=== PATIENT | female | born 1970 | race Caucasian/White ===

== ENCOUNTER → 2017-02-18 | Outpatient (CLI) | payer BC ==
--- NOTE | 2017-02-22 06:59 | MM ---
Reason for exam: screening (asymptomatic). Last mammogram was performed 1 year and 2 months ago. History: Patient is nulliparous. Took hormonal contraceptives for 2 years. Physical Findings: A clinical breast exam by your physician is recommended on an annual basis and results should be correlated with mammographic findings. MG Screening Mammo w CAD Bilateral CC and MLO view(s) were taken. Prior study comparison: January 01, 2016, bilateral MG 3d screening mammo w/cad. December 27, 2014, bilateral MG screening mammo w CAD. The breast tissue is heterogeneously dense. This may lower the sensitivity of mammography. No significant changes when compared with prior studies. ASSESSMENT: Negative, BI-RAD 1 RECOMMENDATION: Routine screening mammogram of both breasts in 1 year.
== END | disposition home or self-care (01) ==
LOC: RADMAMWWP 07:45
PROVIDERS: ATTEND Family Medicine
DX: Z12.31 Encounter for screening mammogram for malignant neoplasm of breast (principal)
CPT/HCPCS: 77067

== ENCOUNTER → 2017-04-08 | Outpatient (CLI) | payer BC ==
--- NOTE | 2017-04-09 10:57 | US ---
EXAMINATION TYPE: US transvaginal DATE OF EXAM: 04/08/2017 COMPARISON: NONE CLINICAL HISTORY: R10.9 Abd Pain,R10.2 Midline Pelvic/Peritoneal Pain; noted one week prior to menstr ual cycle and during menses;G0 TECHNIQUE: Transvaginal (TV) per order. Date of LMP: 03/18/2017 EXAM MEASUREMENTS: Uterus: 9.5 x 5.0 x 3.9 cm Endometrial Stripe: 0.9 cm Right Ovary: 3.1 x 1.7 x 2.0 cm Left Ovary: 2.0 x 1.6 x 1.6 cm 1. Uterus: Anteverted; multiple small nabothian cysts in lower uterus and in cervix with largest in cervix = 0.8 x 0.7 x 0.6cm 2. Endometrium: thickness appears wnl for approximate day 22 LMP 3. Right Ovary: small follicle is seen 4. Left Ovary: small follicle is seen = 0.8 x 0.7 x 0.7cm *color flow is seen in bilateral ovary 5. Bilateral Adnexa: wnl 6. Posterior cul-de-sac: wnl IMPRESSION: 1. No acute pelvic abnormality by ultrasound.
== END | disposition home or self-care (01) ==
LOC: RADUSWWP 15:00
PROVIDERS: ATTEND Family Medicine
DX: R10.2 Pelvic and perineal pain (principal); R10.9 Unspecified abdominal pain
CPT/HCPCS: 76830

== ENCOUNTER → 2018-03-04 | Outpatient (CLI) | payer BC ==
--- NOTE | 2018-03-07 14:58 | MM ---
Reason for exam: screening (asymptomatic). Last mammogram was performed 1 year ago. History: Patient is nulliparous. Took hormonal contraceptives for 2 years. Physical Findings: A clinical breast exam by your physician is recommended on an annual basis and results should be correlated with mammographic findings. MG Screening Mammo w CAD Bilateral CC and MLO view(s) were taken. Prior study comparison: February 18, 2017, bilateral MG screening mammo w CAD. January 01, 2016, bilateral MG 3d screening mammo w/cad. The breast tissue is heterogeneously dense. This may lower the sensitivity of mammography. There is no discrete abnormality. No significant changes when compared with prior studies. ASSESSMENT: Negative, BI-RAD 1 RECOMMENDATION: Routine screening mammogram of both breasts in 1 year.
== END | disposition home or self-care (01) ==
LOC: RADMAMWWP 08:45
PROVIDERS: ATTEND Family Medicine
DX: Z12.31 Encounter for screening mammogram for malignant neoplasm of breast (principal)
CPT/HCPCS: 77067

== ENCOUNTER → 2019-03-17 | Outpatient (CLI) | payer BC ==
--- NOTE | 2019-03-21 10:15 | MM ---
Reason for exam: screening (asymptomatic). Last mammogram was performed 1 year ago. History: Patient is nulliparous. Took hormonal contraceptives for 2 years. Physical Findings: A clinical breast exam by your physician is recommended on an annual basis and results should be correlated with mammographic findings. MG Screening Mammo w CAD Bilateral CC and MLO view(s) were taken. Prior study comparison: March 04, 2018, bilateral MG screening mammo w CAD. February 18, 2017, bilateral MG screening mammo w CAD. The breast tissue is heterogeneously dense. This may lower the sensitivity of mammography. Finding: There are stable fine, grouped/clustered calcifications in the upper quadrant, posterior position of the left breast MLO view. No significant changes in finding since March 04, 2018 and February 18, 2017. ASSESSMENT: Benign, BI-RAD 2 RECOMMENDATION: Routine screening mammogram of both breasts in 1 year.
== END | disposition home or self-care (01) ==
LOC: RADMAMWWP 15:02
PROVIDERS: ATTEND Family Medicine
DX: Z12.31 Encounter for screening mammogram for malignant neoplasm of breast (principal)
CPT/HCPCS: 77067

== ENCOUNTER → 2020-05-08 | Outpatient (CLI) | payer BC ==
--- NOTE | 2020-05-10 09:56 | MM ---
Reason for exam: screening (asymptomatic). Last mammogram was performed 1 year and 2 months ago. History: Patient is nulliparous. Took hormonal contraceptives for 2 years. Physical Findings: A clinical breast exam by your physician is recommended on an annual basis and results should be correlated with mammographic findings. MG Screening Mammo w CAD Bilateral CC and MLO view(s) were taken. Prior study comparison: March 17, 2019, bilateral MG screening mammo w CAD. March 04, 2018, bilateral MG screening mammo w CAD. The breast tissue is heterogeneously dense. This may lower the sensitivity of mammography. There is no discrete abnormality. No significant changes when compared with prior studies. ASSESSMENT: Negative, BI-RAD 1 RECOMMENDATION: Routine screening mammogram of both breasts in 1 year.
== END | disposition home or self-care (01) ==
LOC: RADMAMWWP 07:09
PROVIDERS: ATTEND Family Medicine
DX: Z12.31 Encounter for screening mammogram for malignant neoplasm of breast (principal)
CPT/HCPCS: 77067

== ENCOUNTER 2020-11-04 20:28 | Observation (INO) | payer BC ==
[2020-11-04 20:57] LABS: Basophils % (A) 0 %; Eosinophils # (A) 0.1 k/uL (0-0.7); Eosinophils % (A) 1 %; HCT 41.7 % (34.0-46.0); HGB 13.6 gm/dL (11.4-16.0); Lymphocytes # (A) 2.3 k/uL (1.0-4.8); Lymphocytes % (A) 17 %; MCH 29.8 pg (25.0-35.0); MCHC 32.6 g/dL (31.0-37.0); MCV 91.5 fL (80.0-100.0); Mean Platelet Volume 7.8; Monocytes # (A) 0.6 k/uL (0-1.0); Monocytes % (A) 4 %; Neutrophils # (A) 10.8 k/uL (1.3-7.7); Neutrophils % (A) 77 %; Platelet Count 214 k/uL (150-450); RBC 4.56 m/uL (3.80-5.40); RDW 12.9 % (11.5-15.5)
[2020-11-04 21:06] LABS: ALT 15 U/L (4-34); AST 20 U/L (14-36); African American GFR (CKD) >90 (>60 ml/min/1.73 sqM); Albumin 4.5 g/dL (3.5-5.0); Alkaline Phosphatase 80 U/L (38-126); Anion Gap 10 mmol/L; Blood Urea Nitrogen 19 mg/dL (7-17); Calcium 9.9 mg/dL (8.4-10.2); Carbon Dioxide 23 mmol/L (22-30); Chloride 105 mmol/L (98-107); Glucose 104 mg/dL (74-99); Non-African American GFR(CKD) >90 (>60 ml/min/1.73 sqM); Potassium 4.1 mmol/L (3.5-5.1); Sodium 138 mmol/L (137-145); Total Bilirubin 0.3 mg/dL (0.2-1.3); Total Protein 7.3 g/dL (6.3-8.2)
[2020-11-04 21:13] LABS: INR 0.9 (<1.2); Partial Thromboplastin Time 22.9 sec (22.0-30.0); Prothrombin Time 9.6 sec (9.0-12.0)
[2020-11-04] MEDS ORDERED: ASPIRIN 81 MG PO STA (21:22)
--- NOTE | 2020-11-04 21:25 | ED ---
General Adult HPI - General Chief complaint: Chest Pain Stated complaint: Chest tightness; numbness in arm Time Seen by Provider: 11/04/20 21:05 Source: patient, RN notes reviewed Mode of arrival: wheelchair Limitations: no limitations - History of Present Illness Initial comments: Patient is a pleasant 49-year-old female presenting to the emergency Department with complaints of chest discomfort. Onset of symptoms was a couple of weeks ago. Symptoms have been waxing and waning. No discomfort at this time. Patient has tightness in her chest with tingling of the left arm. Symptoms are not necessarily exertional. No associated dyspnea, nausea, or diaphoresis. No history of similar symptoms previously. - Related Data Home Medications Medication Instructions Recorded Confirmed atenoloL [Tenormin] 25 mg PO BID 08/04/13 11/04/20 Aspirin 81 mg PO DAILY 10/14/13 11/04/20 Ascorbic Acid [Vitamin C] 500 mg PO DAILY 11/04/20 11/04/20 Calcium/Magnesium/Zinc 1 tab PO DAILY 11/04/20 11/04/20 [Jiyhuco-Gwplcovdx-Vazr Tablet] Cholecalciferol [Vitamin D3 (25 25 mcg PO DAILY 11/04/20 11/04/20 Mcg = 1000 Iu)] [place]-3 Fatty Acids [[place]-3] 1,000 mg PO DAILY 11/04/20 11/04/20 Allergies Allergy/AdvReac Type Severity Reaction Status Date / Time No Known Allergies Allergy Verified 11/04/20 21:42 Review of Systems ROS Statement: Those systems with pertinent positive or pertinent negative responses have been documented in the HPI. ROS Other: All systems not noted in ROS Statement are negative. Constitutional: Denies: fever Eyes: Denies: eye pain ENT: Denies: ear pain Respiratory: Denies: cough, dyspnea Cardiovascular: Reports: chest pain Endocrine: Denies: fatigue Gastrointestinal: Denies: abdominal pain Genitourinary: Denies: dysuria Skin: Denies: rash Neurological: Denies: weakness Past Medical History Past Medical History: Hypertension History of Any Multi-Drug Resistant Organisms: None Reported Past Surgical History: No Surgical Hx Reported Past Psychological History: No Psychological Hx Reported Smoking Status: Current every day smoker Past Alcohol Use History: None Reported Past Drug Use History: None Reported General Exam Limitations: no limitations General appearance: alert, in no apparent distress Head exam: Present: normocephalic Eye exam: Present: normal appearance Neck exam: Present: normal inspection Respiratory exam: Present: normal lung sounds bilaterally. Absent: chest wall tenderness Cardiovascular Exam: Present: regular rate, normal rhythm Expanded Peripheral pulses: 2+: Radial (R), Radial (L), Dorsalis Pedis (R), Dorsalis Pedis (L) GI/Abdominal exam: Present: soft. Absent: tenderness Extremities exam: Present: normal inspection. Absent: pedal edema, calf tenderness Neurological exam: Present: alert Psychiatric exam: Present: normal affect, normal mood Skin exam: Present: normal color Course Vital Signs 11/04/20 11/04/20 20:33 21:45 Temperature 97.8 F Pulse Rate 83 89 Respiratory 18 20 Rate Blood Pressure 145/82 137/62 O2 Sat by Pulse 95 98 Oximetry EKG Findings - EKG Comments: EKG Findings:: Normal sinus rhythm with rate of 81. SC 16. QRS 80. QT 352. QTC 408. Normal axis. Normal QRS. No acute ST change. Medical Decision Making - Medical Decision Making Patient reevaluated and resting comfortably in bed. Patient updated on results and plan. Case was discussed with Dr. Dean, who will admit covering Dr. hurd. - Lab Data Result diagrams: 11/04/20 20:48 11/04/20 20:48 Lab Results 11/04/20 11/04/20 11/04/20 Range/Units 20:48 20:48 20:48 WBC 14.0 H (3.8-10.6) k/uL RBC 4.56 (3.80-5.40) m/uL Hgb 13.6 (11.4-16.0) gm/dL Hct 41.7 (34.0-46.0) % MCV 91.5 (80.0-100.0) fL MCH 29.8 (25.0-35.0) pg MCHC 32.6 (31.0-37.0) g/dL RDW 12.9 (11.5-15.5) % Plt Count 214 (150-450) k/uL MPV 7.8 Neutrophils % 77 % Lymphocytes % 17 % Monocytes % 4 % Eosinophils % 1 % Basophils % 0 % Neutrophils # 10.8 H (1.3-7.7) k/uL Lymphocytes # 2.3 (1.0-4.8) k/uL Monocytes # 0.6 (0-1.0) k/uL Eosinophils # 0.1 (0-0.7) k/uL Basophils # 0.0 (0-0.2) k/uL PT 9.6 (9.0-12.0) sec INR 0.9 (<1.2) APTT 22.9 (22.0-30.0) sec Sodium 138 (137-145) mmol/L Potassium 4.1 (3.5-5.1) mmol/L Chloride 105 (98-107) mmol/L Carbon Dioxide 23 (22-30) mmol/L Anion Gap 10 mmol/L BUN 19 H (7-17) mg/dL Creatinine 0.67 (0.52-1.04) mg/dL Est GFR (CKD-EPI)AfAm >90 (>60 ml/min/1.73 sqM) Est GFR (CKD-EPI)NonAf >90 (>60 ml/min/1.73 sqM) Glucose 104 H (74-99) mg/dL Calcium 9.9 (8.4-10.2) mg/dL Total Bilirubin 0.3 (0.2-1.3) mg/dL AST 20 (14-36) U/L ALT 15 (4-34) U/L Alkaline Phosphatase 80 (38-126) U/L Troponin I (0.000-0.034) ng/mL Total Protein 7.3 (6.3-8.2) g/dL Albumin 4.5 (3.5-5.0) g/dL 11/04/20 Range/Units 20:48 WBC (3.8-10.6) k/uL RBC (3.80-5.40) m/uL Hgb (11.4-16.0) gm/dL Hct (34.0-46.0) % MCV (80.0-100.0) fL MCH (25.0-35.0) pg MCHC (31.0-37.0) g/dL RDW (11.5-15.5) % Plt Count (150-450) k/uL MPV Neutrophils % % Lymphocytes % % Monocytes % % Eosinophils % % Basophils % % Neutrophils # (1.3-7.7) k/uL Lymphocytes # (1.0-4.8) k/uL Monocytes # (0-1.0) k/uL Eosinophils # (0-0.7) k/uL Basophils # (0-0.2) k/uL PT (9.0-12.0) sec INR (<1.2) APTT (22.0-30.0) sec Sodium (137-145) mmol/L Potassium (3.5-5.1) mmol/L Chloride (98-107) mmol/L Carbon Dioxide (22-30) mmol/L Anion Gap mmol/L BUN (7-17) mg/dL Creatinine (0.52-1.04) mg/dL Est GFR (CKD-EPI)AfAm (>60 ml/min/1.73 sqM) Est GFR (CKD-EPI)NonAf (>60 ml/min/1.73 sqM) Glucose (74-99) mg/dL Calcium (8.4-10.2) mg/dL Total Bilirubin (0.2-1.3) mg/dL AST (14-36) U/L ALT (4-34) U/L Alkaline Phosphatase (38-126) U/L Troponin I <0.012 (0.000-0.034) ng/mL Total Protein (6.3-8.2) g/dL Albumin (3.5-5.0) g/dL - Radiology Data Radiology results: image reviewed (Chest x-ray shows no acute process) Disposition Clinical Impression: Chest pain Disposition: ADMITTED IP TO THIS [facility] Is patient prescribed a controlled substance at d/c from ED?: No Referrals: Kaity Tovar MD [Primary Care Provider] - 1-2 days Decision Time: 22:12
--- NOTE | 2020-11-04 21:45 | XR ---
EXAMINATION TYPE: XR chest 2V DATE OF EXAM: 11/04/2020 COMPARISON: 10/14/2013 HISTORY: Chest pain TECHNIQUE: FINDINGS: Heart and mediastinum are normal. Lungs are clear. Diaphragm is normal. Bony thorax is intact. Pulmon chris vascularity is normal. IMPRESSION: Normal chest. No change.
[2020-11-04] MEDS ORDERED: NITROGLYCERIN SL TABS 0.4 MG TAB SUBLINGUAL PRN (22:14)
[2020-11-05] MEDS: NITROGLYCERIN OINT 1 INCH/GM PACKET TOPICAL SCH ×2 (00:37→06:53)
[2020-11-05 06:54] VITALS: RESP 18
[2020-11-05] MEDS ORDERED: ASPIRIN 81 MG PO SCH ×2 (09:00→11:00)
[2020-11-05] MEDS ORDERED: ASPIRIN 325 MG TAB PO SCH (09:00)
--- NOTE | 2020-11-05 09:45 | P.CRDCN ---
History of Present Illness History of present illness: This is a 49 year old female with a past medical history of hypertension, palpitations, tobacco use. She follows in the office with Dr. Aviles. We are consulted for chest pain. Patient seen and examined in the emergency department. She presents to the ER with complaints of tingling down the left side of her arm. She states she has been having left sided back and left shoulder blade aching for 3 weeks. She states she thought it was her muscle and she has been seeing a chiropractor for 3 weeks. Over the past 3 weeks she believes the tingling sensation has gradually gotten worse. She has also being getting massages. She states the symptoms are worse when she is sitting up. She states y esterday she was nervous because she started to have tingling sensation down her left arm, she also states she had some chest heaviness decided to come to the emergency department for further evaluation. She thought her chest heaviness may be anxiety. It was non-radiating, non-exertional. She denies any associated shortness of breath, nausea, diaphoresis, lightheadedness, dizziness, syncope. She denies lower extremity edema, orthopnea or PND. She denies history of CO, stroke, diabetes, or coronary artery disease. Current home medications include atenolol 25 mg twice a day, aspirin 81 mg daily. DIAGNOSTICS EKG reveals sinus rhythm, heart rate 81, no significant ST-T wave abnormalities. EKG in 2014 appears similar. Telemetry tracings indicate sinus mechanism heart rate [id number] Chest xray no acute cardiopulmonary process Laboratory reviewed, WBC 14, hemoglobin 13, platelets 214, sodium 138, potassium 4.1, BUN 19, serum creatinine 0.6, troponin negative 3, COVID-19 PCR negative REVIEW OF SYSTEMS At the time of my exam: CONSTITUTIONAL: Denies fever or chills. CARDIOVASCULAR: +episode of chest heaviness, Denies shortness of breath, orthopnea, PND or palpitations. RESPIRATORY: Denies cough. GASTROINTESTINAL: Denies abdominal pain, diarrhea, constipation, nausea or vomiting. MUSCULOSKELETAL: +left arm pain +back aching pain NEUROLOGIC: +left arm tingling Denies numbness, headacbe or weakness. ENDOCRINE: Denies fatigue, weight change, polydipsia or polyurina. GENITOURINARY: Denies burning, hematuria or urgency with micturation. HEMATOLOGIC: Denies history of anemia or bleeding. PHYSICAL EXAMINATION Blood pressure 139/74, heart rate 90, afebrile, maintaining oxygen saturations on room air CONSTITUTIONAL: No apparent distress. HEENT: Head is normocephalic. Pupils are equal, round. Sclerae anicteric. Mucous membranes of the mouth are moist. No JVD. No carotid bruit. CHEST EXAMINATION: Lungs are clear to auscultation. No chest wall tenderness is noted on palpation or with deep breathing. HEART EXAMINATION: Regular rate and rhythm. S1, S2 heard. No murmurs, gallops or rub. ABDOMEN: Soft, nontender. Positive bowel sounds. EXTREMITIES: 2+ peripheral pulses, no lower extremity edema and no calf tenderness. SKIN: warm, dry NEUROLOGIC EXAMINATION: Patient is awake, alert and oriented x3. ASSESSMENT Chest pain, atypical, acute coronary syndrome has been ruled out. Left arm tingling Left shoulder blade and back pain History of hypertension History of palpitations Tobacco use PLAN An acute coronary event has been ruled out with no EKG evidence of ischemia and negative cardiac enzymes. Perform stress echocardiogram to assess for stress induced cardiac ischemia. From a cardiology perspective, If stress test normal, no further workup and patient can be discharged home. Smoking cessation discussed and highly recommended. Follow up with Dr. Aviles. Thank you kindly for this consultation. Nurse Practitioner note has been reviewed, I agree with a documented findings and plan of care. Patient was seen and examined. Past Medical History Past Medical History: Hypertension History of Any Multi-Drug Resistant Organisms: None Reported Past Surgical History: No Surgical Hx Reported Past Psychological History: No Psychological Hx Reported Smoking Status: Current every day smoker Past Alcohol Use History: None Reported Past Drug Use History: None Reported Medications and Allergies Home Medications Medication Instructions Recorded Confirmed Type atenoloL [Tenormin] 25 mg PO BID 08/04/13 11/04/20 History Aspirin 81 mg PO DAILY 10/14/13 11/04/20 History Ascorbic Acid [Vitamin C] 500 mg PO DAILY 11/04/20 11/04/20 History Calcium/Magnesium/Zinc 1 tab PO DAILY 11/04/20 11/04/20 History [Wzhcqvy-Sorpgrelt-Cimi Tablet] Cholecalciferol [Vitamin D3 (25 25 mcg PO DAILY 11/04/20 11/04/20 History Mcg = 1000 Iu)] [place]-3 Fatty Acids [[place]-3] 1,000 mg PO DAILY 11/04/20 11/04/20 History Allergies Allergy/AdvReac Type Severity Reaction Status Date / Time No Known Allergies Allergy Verified 11/04/20 21:42 Physical Exam Vitals: Vital Signs Temp Pulse Resp BP Pulse Ox 11/05/20 06:00 80 18 127/75 97 11/05/20 03:00 68 18 119/65 95 11/05/20 00:37 97.9 F 85 16 124/73 97 11/05/20 00:00 75 20 123/76 96 11/04/20 22:45 80 20 118/68 99 11/04/20 21:45 89 20 137/62 98 11/04/20 20:33 97.8 F 83 18 145/82 95 Intake and Output 11/04/20 11/05/20 11/05/20 22:59 06:59 14:59 Other: Weight 117.934 kg Results 11/04/20 20:48 11/04/20 20:48 Cardiac Enzymes 11/04/20 11/04/20 11/04/20 Range/Units 20:48 20:48 23:27 AST 20 (14-36) U/L Troponin I <0.012 <0.012 (0.000-0.034) ng/mL 11/05/20 Range/Units 03:11 AST (14-36) U/L Troponin I <0.012 (0.000-0.034) ng/mL Coagulation 11/04/20 Range/Units 20:48 PT 9.6 (9.0-12.0) sec APTT 22.9 (22.0-30.0) sec CBC 11/04/20 Range/Units 20:48 WBC 14.0 H (3.8-10.6) k/uL RBC 4.56 (3.80-5.40) m/uL Hgb 13.6 (11.4-16.0) gm/dL Hct 41.7 (34.0-46.0) % Plt Count 214 (150-450) k/uL Comprehensive Metabolic Panel 11/04/20 Range/Units 20:48 Sodium 138 (137-145) mmol/L Potassium 4.1 (3.5-5.1) mmol/L Chloride 105 (98-107) mmol/L Carbon Dioxide 23 (22-30) mmol/L BUN 19 H (7-17) mg/dL Creatinine 0.67 (0.52-1.04) mg/dL Glucose 104 H (74-99) mg/dL Calcium 9.9 (8.4-10.2) mg/dL AST 20 (14-36) U/L ALT 15 (4-34) U/L Alkaline Phosphatase 80 (38-126) U/L Total Protein 7.3 (6.3-8.2) g/dL Albumin 4.5 (3.5-5.0) g/dL Current Medications Generic Name Dose Route Start Last Admin Trade Name Freq PRN Reason Stop Dose Admin Aspirin 325 mg 11/05/20 09:00 Aspirin 325 Mg Tab PO DAILY ARLINE Nitroglycerin 0.4 mg 11/04/20 22:14 Nitroglycerin Sl Tabs 0.4 Mg Tab SUBLINGUAL Q5M PRN Chest Pain Nitroglycerin 1 inch 11/05/20 00:00 11/05/20 06:53 Nitroglycerin Oint 1 Inch/Gm Packet TOPICAL Not Given Q6HR ARLINE Intake and Output 11/04/20 11/05/20 11/05/20 22:59 06:59 14:59 Other: Weight 117.934 kg 11/04/20 20:48 11/04/20 20:48
--- NOTE | 2020-11-05 10:17 | P.STRESS ---
- Stress Test Note Stress Test Results/Findings: Exam Performed: stress echo exercise Exam Date: 11/05/20 Reason for Exam: Chest heaviness Height: 5 ft 9 in Weight: 117.934 kg Protocol: Joey Stage: II Duration of Exercise: 6 min Resting Heart Rate: 100 Resting Blood Pressure: 126/58 Maximum Achieved Heart Rate: 164 Maximum Achieved Blood Pressure: 126/58 85% PMHR: 144 100% PMHR: 169 METS: 7.3 Technologist Comment: Stress Test Results/Findings: Patient underwent exercise stress echo with a Joey protocol treadmill stress test. Patient exercised into Stage 2 for a total of 6 minutes reaching a total of 7.3 METS. Patient's maximum heart rate was 164 which represented 97% age- predicted maximum heart rate. Stress EKG portion: At baseline patient's EKG showed normal sinus rhythm, normal axis, minimal 0.[address] depressions V4 through V6. At peak exercise, EKG showed no significant change from baseline. Stress echo portion: 2-D echocardiogram was performed in the parasternal long, personal short, apical 2 and apical four-chamber views at rest, peak exercise and in recovery. At baseline, echocardiogram showed left ventricular ejection fraction 55% without wall motion abnormalities. With peak exercise, echocardiogram shows improvement in left ventricular ejection fraction, increase contractility, decrease in left ventricular dimension without wall motion abnormalities consistent with a normal response to exercise. Conclusions: 1. Normal EKG and echo response to exercise without evidence of inducible ischemia. 2. Fair exercise capacity.
[2020-11-05] MEDS ORDERED: atenoloL 25 MG TAB PO SCH (11:00)
[2020-11-05] MEDS ORDERED: NON FORMULARY DRUG (Omega-3 Fatty Acids [Omega-3] 1,000 MG Capsule) PO SCH (11:00)
[2020-11-05] MEDS ORDERED: CHOLECALCIFEROL 25 MCG (1000 IU) TABLET PO SCH (11:00)
[2020-11-05] MEDS ORDERED: ASCORBIC ACID 500 MG TAB PO SCH (11:00)
[2020-11-05] MEDS ORDERED: NON FORMULARY DRUG (Calcium/Magnesium/Zinc [Calcium-Magnesium-Zinc Tablet] 1 EACH Tablet) PO SCH (11:00)
[2020-11-05 14:33] VITALS: BP 116/74; PULSE 75; TEMP 97.8
[2020-11-06 00:28] LABS: Chol/HDL Ratio 3.32 Ratio; HDL Cholesterol 60.3 mg/dL (40.00-60.00); LDL Cholesterol,Calculated 129.2 mg/dL (0.0-131.0); Triglycerides 52.7 mg/dL (0.00-149.00); VLDL Calculation 10.54 mg/dL (5.00-40.00)
--- NOTE | 2020-11-08 10:40 | P.HPIM ---
History of Present Illness H&P Date: 11/05/20 Halima Patel, is a 49-year-old female who presented to [facility] emergency room with a chief complaint of chest pain with tingling down left arm. Patient originally thought chest discomfort was caused from anxiety but decided. but proceeded to ER for further evaluation Laboratory data reveals Testing in the emergency room revealed troponins negative 3, covid negative Patient was admitted to medical floor for further evaluation and treatment area cardiology service is consulted Past medical history is significant for hypertension and nicotine dependence On review of systems patient is currently resting comfortably in bed. Patient denies chest pain or shortness breath. Patient denies any nausea vomiting or diarrhea. Denies any urinary burning or frequency. Patient denies any recent illness Review of Systems please refer to HPI otherwise unremarkable Past Medical History Past Medical History: Hypertension History of Any Multi-Drug Resistant Organisms: None Reported Past Surgical History: No Surgical Hx Reported Past Psychological History: No Psychological Hx Reported Smoking Status: Current every day smoker Past Alcohol Use History: None Reported Past Drug Use History: None Reported Medications and Allergies Home Medications Medication Instructions Recorded Confirmed Type atenoloL [Tenormin] 25 mg PO BID 08/04/13 11/04/20 History Aspirin 81 mg PO DAILY 10/14/13 11/04/20 History Ascorbic Acid [Vitamin C] 500 mg PO DAILY 11/04/20 11/04/20 History Calcium/Magnesium/Zinc 1 tab PO DAILY 11/04/20 11/04/20 History [Yxtypod-Scalndmbu-Algr Tablet] Cholecalciferol [Vitamin D3 (25 25 mcg PO DAILY 11/04/20 11/04/20 History Mcg = 1000 Iu)] [place]-3 Fatty Acids [[place]-3] 1,000 mg PO DAILY 11/04/20 11/04/20 History Allergies Allergy/AdvReac Type Severity Reaction Status Date / Time No Known Allergies Allergy Verified 11/04/20 21:42 Physical Exam Vitals: Vital Signs Temp Pulse Resp BP Pulse Ox 11/05/20 08:21 90 18 139/74 97 11/05/20 06:00 80 18 127/75 97 11/05/20 03:00 68 18 119/65 95 11/05/20 00:37 97.9 F 85 16 124/73 97 11/05/20 00:00 75 20 123/76 96 11/04/20 22:45 80 20 118/68 99 11/04/20 21:45 89 20 137/62 98 11/04/20 20:33 97.8 F 83 18 145/82 95 Intake and Output 11/04/20 11/05/20 11/05/20 22:59 06:59 14:59 Other: Weight 117.934 kg In general patient is alert and oriented x 3 in no distress HEENT head normocephalic and atraumatic Neck is supple no JVD no goiter no lymphadenopathy no carotid bruit Chest examination is clear to auscultation no crackles no wheezing Cardiac exam reveals regular heart sounds S1 and S2 no gallops no murmurs Abdomen is soft nontender no organomegaly with normal bowel sounds Extremity exam reveals no edema no cyanosis or clubbing Neurological examination reveals no gross focal deficits Results CBC & Chem 7: 11/04/20 20:48 11/04/20 20:48 Labs: Abnormal Lab Results - Last 24 Hours (Table) 11/04/20 11/04/20 Range/Units 20:48 20:48 WBC 14.0 H (3.8-10.6) k/uL Neutrophils # 10.8 H (1.3-7.7) k/uL BUN 19 H (7-17) mg/dL Glucose 104 H (74-99) mg/dL Assessment and Plan Plan: Chest pain on presentation History of essential hypertension Nicotine dependence patient educated greater than 3 minutes on smoking cessation Managing Jeweler service is consulted
--- NOTE | 2020-11-08 10:41 | P.DS ---
Providers Date of admission: 11/04/20 22:14 Expected date of discharge: 11/05/20 Attending physician: Francis Dean Consults: 11/04/20 22:14 Consult Physician Urgent Consulting Provider: Alexander Rivers Consult Reason/Comments: cp Do you want consulting provider notified?: Yes Primary care physician: Kaity [facility] Course: Discharge diagnosis Chest pain on presentation History of essential hypertension Nicotine dependence patient educated greater than 3 minutes on smoking cessation Hospital course Halima Patel, is a 49-year-old female who presented to [facility] emergency room with a chief complaint of chest pain with tingling down left arm. Patient originally thought chest discomfort was caused from anxiety but decided. but proceeded to ER for further evaluation Laboratory data reveals Testing in the emergency room revealed troponins negative 3, covid negative Patient was admitted to medical floor for further evaluation and treatment area cardiology service is consulted Past medical history is significant for hypertension and nicotine dependence On review of systems patient is currently resting comfortably in bed. Patient denies chest pain or shortness breath. Patient denies any nausea vomiting or diarrhea. Denies any urinary burning or frequency. Patient denies any recent illness Patient was evaluated by cardiology services stress test was completed showing normal EKG Response without evidence of inducible ischemia. Troponins were negative 3. Patient DC'd home and advised follow-up PCP for further management Patient Condition at Discharge: Stable Plan - Discharge Summary New Discharge Prescriptions: Continue atenoloL [Tenormin] 25 mg PO BID Aspirin 81 mg PO DAILY Cholecalciferol [Vitamin D3 (25 Mcg = 1000 Iu)] 25 mcg PO DAILY Calcium/Magnesium/Zinc [Bwdubcc-Nzyihocna-Dkkm Tablet] 1 tab PO DAILY Ascorbic Acid [Vitamin C] 500 mg PO DAILY Wood[place]-3 Fatty Acids [[place]-3] 1,000 mg PO DAILY Discharge Medication List atenoloL [Tenormin] 25 mg PO BID 08/04/13 [History] Aspirin 81 mg PO DAILY 10/14/13 [History] Ascorbic Acid [Vitamin C] 500 mg PO DAILY 11/04/20 [History] Calcium/Magnesium/Zinc [Ztdxshs-Rqhwbndgu-Johf Tablet] 1 tab PO DAILY 11/04/20 [History] Cholecalciferol [Vitamin D3 (25 Mcg = 1000 Iu)] 25 mcg PO DAILY 11/04/20 [History] Woodstock-3 Fatty Acids [Wood[place]-3] 1,000 mg PO DAILY 11/04/20 [History] Follow up Appointment(s)/Referral(s): Kaity Tovar MD [Primary Care Provider] - 1-2 days Ernesto Aviles MD [STAFF PHYSICIAN] - 2 Weeks Discharge Disposition: HOME SELF-CARE
== END 2020-11-05 14:35 | disposition home or self-care (01) ==
LOC: EC 20:28 → 6NMEDSUR 22:14
PROVIDERS: ADMIT Internal Medicine; ATTEND Internal Medicine
DX: R07.89 Other chest pain (principal); M54.9 Dorsalgia, unspecified; I10 Essential (primary) hypertension; R20.2 Paresthesia of skin; M25.512 Pain in left shoulder; F17.200 Nicotine dependence, unspecified, uncomplicated; Z20.822 Contact with and (suspected) exposure to COVID-19; Z79.899 Other long term (current) drug therapy; Z79.82 Long term (current) use of aspirin; Z71.6 Tobacco abuse counseling
CPT/HCPCS: 99285; 36415; 93005; 93351; 80061; 80053; 84484 ×2; 85025; 85610; 85730; 87635; 71046; G0378 ×2

== ENCOUNTER → 2021-05-20 | Outpatient (CLI) | payer BC ==
--- NOTE | 2021-05-21 15:04 | MM ---
Reason for exam: screening (asymptomatic). Last mammogram was performed 1 year ago. History: Patient is nulliparous. Took hormonal contraceptives for 2 years. Physical Findings: A clinical breast exam by your physician is recommended on an annual basis and results should be correlated with mammographic findings. MG 3D Screening Mammo W/Cad Bilateral CC and MLO view(s) were taken. Prior study comparison: May 08, 2020, bilateral MG screening mammo w CAD. March 17, 2019, bilateral MG screening mammo w CAD. The breast tissue is heterogeneously dense. This may lower the sensitivity of mammography. There is no discrete abnormality. No significant changes when compared with prior studies. ASSESSMENT: Negative, BI-RAD 1 RECOMMENDATION: Routine screening mammogram of both breasts in 1 year.
== END | disposition home or self-care (01) ==
LOC: RADMAMWWP 08:08
PROVIDERS: ATTEND Family Medicine
DX: Z12.31 Encounter for screening mammogram for malignant neoplasm of breast (principal)
CPT/HCPCS: 77063; 77067

== ENCOUNTER → 2022-05-28 | Outpatient (CLI) | payer BC ==
--- NOTE | 2022-05-29 09:33 | MM ---
Reason for Exam: Screening (asymptomatic). Last screening mammogram was performed 12 month(s) ago. Patient History: Menarche at age 10. Patient has no children. Currently using Progesterone. Patient used Hormonal Contraceptives for 2 years. Last menstrual period: 10/29/2021 Risk Values: Elaine 5 year model risk: 1.2%. NCI Lifetime model risk: 9.4%. Prior Study Comparison: 03/17/2019 Bilateral Screening Mammogram, [facility]. 05/08/2020 Bilateral Screening Mammogram, [facility]. 05/20/2021 Bilateral Screening Mammogram, [facility]. Tissue Density: The breast tissue is heterogeneously dense. This may lower the sensitivity of mammography. Findings: Analyzed By CAD. There is no suspicious new group of microcalcifications or new suspicious mass in either breast. Overall Assessment: Negative, BI-RAD 1 Management: Screening Mammogram of both breasts in 1 year. A clinical breast exam by your physician is recommended on an annual basis and results should be correlated with mammographic findings. Electronically signed and approved by: Florentino Lau M.D.
== END | disposition home or self-care (01) ==
LOC: RADMAMWWP 16:21
PROVIDERS: ATTEND Nurse Practitioner
DX: Z12.31 Encounter for screening mammogram for malignant neoplasm of breast (principal)
CPT/HCPCS: 77063; 77067

== ENCOUNTER → 2023-06-01 | Outpatient (CLI) | payer BC ==
--- NOTE | 2023-06-02 13:46 | MM ---
Reason for Exam: Screening (asymptomatic). Last screening mammogram was performed 12 month(s) ago. Patient History: Menarche at age 10. Patient has no children. Postmenopausal. Currently using Progesterone. Patient used Hormonal Contraceptives for 2 years. Risk Values: Elaine 5 year model risk: 1.3%. NCI Lifetime model risk: 9.3%. Prior Study Comparison: 05/08/2020 Bilateral Screening Mammogram, [facility]. 05/20/2021 Bilateral Screening Mammogram, [facility]. 05/28/2022 Bilateral MG 3D screening mammo w/cad, [facility]. Tissue Density: The breasts are heterogeneously dense, which may obscure small masses. Findings: Analyzed By CAD. There is no suspicious group of microcalcifications or new suspicious mass in either breast. Overall Assessment: Benign, BI-RAD 2 Management: Screening Mammogram of both breasts in 1 year. . Patient should continue monthly self-breast exams. A clinical breast exam by your physician is recommended on an annual basis. This exam should not preclude additional follow-up of suspicious palpable abnormalities. Note on Elaine scores and lifetime risk: 1. A Elaine score greater than 3% is considered moderate risk. If this is the case, consider specialist referral to assess eligibility for a risk reducing agent. 2. If overall lifetime risk for the development of breast cancer is 20% or higher, the patient may qualify for future screening with alternating mammogram and breast MRI. Electronically signed and approved by: Kuldeep Soliman M.D. Radiologis
== END | disposition home or self-care (01) ==
LOC: RADMAMWWP 06:49
PROVIDERS: ATTEND Family Medicine
DX: Z12.31 Encounter for screening mammogram for malignant neoplasm of breast (principal); Z78.0 Asymptomatic menopausal state
CPT/HCPCS: 77063; 77067

== ENCOUNTER → 2024-06-12 | Outpatient (CLI) | payer BC ==
--- NOTE | 2024-06-13 07:54 | MM ---
Reason for Exam: Screening (asymptomatic). Last mammogram was performed 1 year(s) and 1 month(s) ago. Patient History: Menarche at age 10. Patient has no children. Postmenopausal. Currently using Progesterone. Patient used Hormonal Contraceptives for 2 years. Risk Values: Elaine 5 year model risk: 1.3%. NCI Lifetime model risk: 9.1%. Prior Study Comparison: 05/20/2021 Bilateral Screening Mammogram, [facility]. 05/28/2022 Bilateral MG 3D screening mammo w/cad, [facility]. 06/01/2023 Bilateral MG 3D screening mammo w/cad, [facility]. Tissue Density: The breasts are heterogeneously dense, which may obscure small masses. Findings: Analyzed By CAD. Right breast: There is no suspicious group of microcalcifications or new suspicious mass. Left breast: There is no suspicious group of microcalcifications or new suspicious mass. Overall Assessment: Negative, BI-RAD 1 Management: Screening Mammogram of both breasts in [address] [facility] will attempt to contact patient to return for supplemental views and ultrasound if indicated. Patient should continue monthly self-breast exams. A clinical breast exam by your physician is recommended on an annual basis. This exam should not preclude additional follow-up of suspicious palpable abnormalities. Note on Elaine scores and lifetime risk: 1. A Elaine score greater than 3% is considered moderate risk. If this is the case, consider specialist referral to assess eligibility for a risk reducing agent. 2. If overall lifetime risk for the development of breast cancer is 20% or higher, the patient may qualify for future screening with alternating mammogram and breast MRI. [facility], , 06/13/2024 7:51 AM. Electronically signed and approved by: Guevara Valencia DO
== END | disposition home or self-care (01) ==
LOC: RADMAMWWP 15:11
PROVIDERS: ATTEND Obstetrics & Gynecology
DX: Z12.31 Encounter for screening mammogram for malignant neoplasm of breast (principal); R92.333 Mammographic heterogeneous density, bilateral breasts; Z78.0 Asymptomatic menopausal state; Z92.0 Personal history of contraception
CPT/HCPCS: 77063; 77067